=== PATIENT | female | born 1960 | race Hispanic/Latino ===

== ENCOUNTER → 2018-08-19 | Outpatient (CLI) | payer MEDICAID ==
[2018-08-19 10:25] LABS: BASOPHILS % (AUTO) 0.7 % (0.0-5.0); EOSINOPHILS % (AUTO) 3.2 % (0.0-8.0); HEMATOCRIT 41.2 % (36-48); LYMPHOCYTES % (AUTO) 37.1 % (21.0-51.0); MEAN CORPUSCULAR HEMOGLOBIN 30.8 pg (27.0-33.0); MEAN CORPUSCULAR HGB CONC 34.6 g/dL (32.0-36.0); MEAN CORPUSCULAR VOLUME 89.2 fL (79-99); MONOCYTES % (AUTO) 5.1 % (3.0-13.0); NEUTROPHILS % (AUTO) 53.9 % (40.0-77.0); PLATELET COUNT (AUTO) 262 K/uL (130-400); RED BLOOD CELL COUNT(AUTO) 4.61 MIL/uL (4.00-5.50); RED CELL DISTRIBUTION WIDTH 12.4 % (11.0-15.5); WHITE BLOOD COUNT (AUTO) 8.7 K/uL (4.8-10.8)
[2018-08-19 10:43] LABS: ALBUMIN 4.1 g/dL (3.5-5.0); BILIRUBIN,TOTAL 0.4 mg/dL (0.2-1.0); CREATININE 0.8 mg/dL (0.5-1.5); POTASSIUM 4.2 mmol/L (3.5-5.1); TOTAL PROTEIN, SERUM 7.9 g/dL (6.0-8.3)
== END | disposition home or self-care (01) ==
LOC: RAH 10:00
PROVIDERS: ATTEND Internal Medicine Gastroenterology
DX: K76.0 Fatty (change of) liver, not elsewhere classified (principal)
CPT/HCPCS: 36415; 76700; 80053; 82150; 83690; 85025

== ENCOUNTER 2022-02-20 06:44 | Day surgery (SDC) | payer OTHER, MEDICARE ==
[~2022-02-20] VITALS: Ht 160 cm; Wt 95.7 kg
[2022-02-20 07:50] VITALS: BP_SYST 140; BP_DIAS 75; BP_DIAS 88
[2022-02-20 08:00] VITALS: BP 138/70
[2022-02-20 08:05] VITALS: BP 141/87
[2022-02-20] MEDS ORDERED: LIDOCAINE HCL 1% 20 ML VIAL ONE (08:06)
[2022-02-20] MEDS ORDERED: PROPOFOL 10 MG/ML 20ML VIAL IV ONE (08:06)
[2022-02-20 08:10] VITALS: BP 139/80
[2022-02-20] MEDS ORDERED: LOSA25TA41 PO (08:14)
[2022-02-20 08:15] VITALS: BP 140/75
[2022-02-20] MEDS ORDERED: OMEP40CA21 PO (08:15)
[2022-02-20] MEDS ORDERED: CETI10CA5 PO (08:16)
[2022-02-20] MEDS ORDERED: ATOR10TA69 PO (08:17)
[2022-02-20] MEDS ORDERED: MONT10TA21 PO (08:17)
[2022-02-20] MEDS ORDERED: PARO-66 PO (08:19)
[2022-02-20 08:20] VITALS: BP 138/64
[2022-02-20] MEDS ORDERED: 0.9%NACL 1000ML 1,000 ML IV ONE (10:30)
== END 2022-02-20 11:30 | disposition home or self-care (01) ==
LOC: ENDO 06:44 → DAH 06:44 → ENDO 11:30
PROVIDERS: ATTEND Surgery
DX: K21.00 Gastro-esophageal reflux disease with esophagitis, without bleeding (principal); Z20.822 Contact with and (suspected) exposure to COVID-19; K29.70 Gastritis, unspecified, without bleeding; I10 Essential (primary) hypertension; E11.9 Type 2 diabetes mellitus without complications; G43.909 Migraine, unspecified, not intractable, without status migrainosus; K76.0 Fatty (change of) liver, not elsewhere classified; Z91.040 Latex allergy status; Z79.84 Long term (current) use of oral hypoglycemic drugs; Z98.890 Other specified postprocedural states; Z90.49 Acquired absence of other specified parts of digestive tract; Z82.49 Family history of ischemic heart disease and other diseases of the circulatory system; Z83.3 Family history of diabetes mellitus; Z98.84 Bariatric surgery status
CPT/HCPCS: 87426; 43239; 88305; 88342; J7030 ×2; J2704; A4620; A4215; A4223; A4222; A4221; A4663; A4216; A4606

== ENCOUNTER 2022-08-14 07:57 | Day surgery (SDC) | payer OTHER, MEDICARE ==
[2022-08-11 14:01] LABS: BASOPHILS % (AUTO) 0.5 % (0.0-5.0); EOSINOPHILS % (AUTO) 1.4 % (0.0-8.0); HEMATOCRIT 34.3 % (36-48); LYMPHOCYTES % (AUTO) 39.1 % (21.0-51.0); MEAN CORPUSCULAR HEMOGLOBIN 28.9 pg (27.0-33.0); MEAN CORPUSCULAR HGB CONC 32.1 g/dL (32.0-36.0); MEAN CORPUSCULAR VOLUME 90.3 fL (79-99); MONOCYTES % (AUTO) 7.5 % (3.0-13.0); NEUTROPHILS % (AUTO) 51.3 % (40.0-77.0); PLATELET COUNT (AUTO) 333 K/uL (130-400); RED CELL DISTRIBUTION WIDTH 14.5 % (11.0-15.5); WHITE BLOOD COUNT (AUTO) 6.6 K/uL (4.8-10.8)
[2022-08-11 14:14] LABS: CREATININE 0.7 mg/dL (0.5-1.5)
[2022-08-11 14:15] LABS: INR 1.09 (0.85-1.15); PROTHROMBIN TIME 11.8 SEC (9.6-11.6)
[2022-08-11 14:16] LABS: PARTIAL THROMBOPLASTIN TIME 30.8 SEC (26.3-35.5)
[2022-08-11 15:04] VITALS: BP 87/61
[~2022-08-14] VITALS: Ht 160 cm; Wt 76.8 kg
[2022-08-14] VITALS (18 sets, daily range): BP systolic 102–144; BP diastolic 70–89
[~2022-08-14 07:57] MED LIST: CETI10CA5 PO; LOSA25TA41 PO; MONT-46 PO; PARO-149 PO
[2022-08-14] MEDS ORDERED: CEFAZOLIN SODIUM 2 GM VIAL ONE (08:43)
[2022-08-14] MEDS ORDERED: LACTATED RINGERS 1000ML 1,000 ML IV ONE (08:43)
[2022-08-14] MEDS ORDERED: CLINDAMYCIN IVPB 900MG/50ML 50 ML IV ONE (08:45)
[2022-08-14] MEDS ORDERED: PANT40TA54 PO (10:05)
[2022-08-14] MEDS ORDERED: VITAMIN B12 PO (10:05)
[2022-08-14] MEDS ORDERED: IRON PO (10:05)
[2022-08-14] MEDS ORDERED: VITAMIN C PO (10:05)
[2022-08-14] MEDS ORDERED: ERGO400C PO (10:05)
[2022-08-14] MEDS ORDERED: MULT-1367 PO (10:05)
[2022-08-14] MEDS ORDERED: INDOCYANINE GREEN 25 MG VIAL IJ ONE (11:04)
[2022-08-14] MEDS ORDERED: BUPIVACAINE/PF 0.25% 30ML VIAL IJ ONE ×2 (12:00→12:51)
[2022-08-14] MEDS ORDERED: LIDOCAINE 1%-EPI 1:100,000 20 ML VIAL IJ ONE ×2 (12:00→12:49)
[2022-08-14] MEDS ORDERED: BUPIVACAINE/PF 0.25% 10ML VIAL IJ ONE (12:00)
[2022-08-14] MEDS ORDERED: PROPOFOL 10 MG/ML 20ML VIAL IV ONE (12:16)
[2022-08-14] MEDS ORDERED: LIDOCAINE PF 100MG/5ML (2%) SYRINGE 5ML ONE (12:16)
[2022-08-14] MEDS ORDERED: MIDAZOLAM HCL 1 MG/ML 2ML VIAL ONE (12:16)
[2022-08-14] MEDS ORDERED: ROCURONIUM 10MG/1ML SYR 10 MG/ML ML ONE (12:17)
[2022-08-14] MEDS ORDERED: FENTANYL CITRATE PF 50 MCG/1 ML 2ML VIAL ONE ×2 (12:17→13:32)
[2022-08-14] MEDS ORDERED: ROPIVACAINE 0.5% 5MG/ML 30ML IJ ONE (12:43)
[2022-08-14] MEDS ORDERED: PHENYLEPHRINE HCL 10 MG/ML 1ML VIAL IV ONE (12:44)
[2022-08-14] MEDS ORDERED: GLYCOPYRROLATE 1 MG/5 ML SYRINGE ONE (12:44)
[2022-08-14] MEDS ORDERED: DEXAMETHASONE SOD PHOSPHATE 4 MG/ML 1ML VIAL ONE (12:44)
[2022-08-14] MEDS ORDERED: NEOSTIGMINE 5MG/5ML SYR IV ONE (12:44)
[2022-08-14] MEDS ORDERED: ONDANSETRON 4MG INJ ONE ×2 (12:45→14:26)
[2022-08-14] MEDS ORDERED: KETOROLAC 30MG VIAL (30MG/ML) ONE (13:32)
[2022-08-14] MEDS ORDERED: MEPERIDINE-PF 25 MG/ML SYG ONE (14:27)
== END 2022-08-14 16:00 | disposition home or self-care (01) ==
LOC: DAH 07:57
PROVIDERS: ATTEND Surgery
DX: K81.1 Chronic cholecystitis (principal); Z20.822 Contact with and (suspected) exposure to COVID-19; K82.8 Other specified diseases of gallbladder; I10 Essential (primary) hypertension; E11.9 Type 2 diabetes mellitus without complications; G43.909 Migraine, unspecified, not intractable, without status migrainosus; K76.0 Fatty (change of) liver, not elsewhere classified; K81.2 Acute cholecystitis with chronic cholecystitis; Z79.01 Long term (current) use of anticoagulants; Z79.899 Other long term (current) drug therapy; Z90.49 Acquired absence of other specified parts of digestive tract; Z98.890 Other specified postprocedural states; Z82.49 Family history of ischemic heart disease and other diseases of the circulatory system; Z83.3 Family history of diabetes mellitus; Z98.84 Bariatric surgery status
CPT/HCPCS: 80048; 85025; 85610; 85730; 87426; 36415; 47562; 88304; A6260; J1100; A4663; J7030; J7120; J3010 ×2; J3490 ×7; J2710; J2001; J2250; J2704; J2405 ×2; J1885; J2175; J2370; G0168; C1769; A4649 ×2; A4215; A4223; A4222; A4221; A4600; J2795